=== PATIENT | male | born 1965 | race Asian ===

== ENCOUNTER 2021-11-26 21:07 | Emergency (ER) | payer OTHER ==
[~2021-11-26] VITALS: Ht 188 cm; Wt 90.7 kg
[2021-11-26 21:36] LABS: PLATELET COUNT 297 K/uL (142-355)
[2021-11-26 21:38] LABS: POTASSIUM 3.4 mmol/L (3.6-5.2)
[2021-11-26 22:08] VITALS: BP 139/103; TEMP 98
[2021-11-26] MEDS ORDERED: AMLODIPINE BESYLATE PO (23:08)
[2021-11-26] MEDS ORDERED: FAMO20TA4 PO (23:09)
[2021-11-26] MEDS ORDERED: FERROUS FUM324 MG PO (23:10)
[2021-11-26] MEDS ORDERED: FLUOXETINE20 MG PO (23:11)
[2021-11-26] MEDS ORDERED: MELATONIN5 M2 PO (23:13)
[2021-11-26] MEDS ORDERED: CVS SENNA8.6 MG PO (23:14)
[2021-11-26] MEDS ORDERED: TRAZ50TA36 PO (23:15)
[2021-11-26] MEDS ORDERED: VITAMIN D1000 UNI1 PO (23:16)
[2021-11-26] MEDS ORDERED: HALO5TAB10 PO (23:18)
[2021-11-26] MEDS ORDERED: ZIPR20IN IM (23:19)
[2021-11-27] MEDS ORDERED: HALO50IN4 IM (08:40)
[2021-11-27] MEDS ORDERED: HYDROXYZINE HYD25 MG PO (08:45)
== END 2021-11-26 22:24 | disposition still patient (30) ==
LOC: ED 21:07
PROVIDERS: Emergency Medicine
DX: F25.8 Other schizoaffective disorders (principal); R45.1 Restlessness and agitation; I10 Essential (primary) hypertension; Z11.52 Encounter for screening for COVID-19; Z04.6 Encounter for general psychiatric examination, requested by authority
CPT/HCPCS: 36415; 80053; 81000; 85027; 87635; 93005; 99283; U0003